=== PATIENT | female | born 1960 | race Hispanic/Latino ===

== ENCOUNTER 2016-05-24 10:07 | Outpatient (CLI) | payer MEDICARE ==
--- NOTE | 2016-05-24 11:26 | XRay Report ---
CERVICAL SPINE, 5 views: History: Cervicalgia, neck pain. Findings: No comparison. There is normal height and alignment of the cervical vertebral bodies. Mild disc space narrowing and anterior spurring is identified at C5-6 and C6-7. The remaining levels are within normal in its. The facet joints are unremarkable. The oblique images demonstrate no evidence for high-grade neural foraminal narrowing. The prevertebral soft tissues are normal thickness. IMPRESSION: Mild cervical spondylosis as described.
--- NOTE | 2016-05-24 12:14 | XRay Report ---
BILATERAL FEET, 3 VIEWS History: Bilateral foot pain. Findings: There is normal bone mineralization. Mild joint space narrowing is noted at the first metatarsophalangeal joints bilaterally. No acute osseous findings or erosive joint pathology. Mild degenerative changes are noted in the midfoot. Moderate bilateral plantar spurs are identified. The soft tissues are unremarkable. Impression: Mild bilateral osteoarthritic changes. Moderate bilateral plantar spurs.
--- NOTE | 2016-05-24 12:30 | XRay Report ---
LUMBOSACRAL SPINE, FIVE VIEWS: HISTORY: Low back pain. No comparison. There is 4 mm anterolisthesis of L4 respect to L5 which is secondary to bilateral L4 pars defects. The remaining lumbar vertebra are normal in alignment. No compression deformity, fracture or bone lesion. There is moderate disc space narrowing and facet arthropathy at L4-5 and L5-S1. There is mild facet arthropathy at the remaining levels. The oblique images are limited and poorly demonstrate the neural foramen. Neural foraminal narrowing and at the lower levels could be present. IMPRESSION: Lumbar spondylosis. Grade 1 anterolisthesis of L4 with respect to L5. No acute process identified.
== END 2016-05-24 10:08 | disposition home or self-care (01) ==
LOC: XRAY 10:07
PROVIDERS: ATTEND Urology
DX: M47.892 Other spondylosis, cervical region (principal); M47.896 Other spondylosis, lumbar region; M12.88 Other specific arthropathies, not elsewhere classified, other specified site; M79.671 Pain in right foot; M54.5 Low back pain
CPT/HCPCS: 72050; 72110

== ENCOUNTER 2016-12-10 15:23 | Inpatient (IN) | payer MEDICARE ==
[2016-12-10 16:24] LABS: Urine Drugs of Abuse Note Disclamer
[2016-12-10 16:32] LABS: Bilirubin,Urine NEG (Negative); Blood,Urine NEG (Negative); Ketones,Urine NEG (Negative); Leukocyte Esterase,Urine NEG (Negative); Nitrite,Urine NEG (Negative); Protein,Urine <15 mg/dL mg/dL (Negative); Urobilinogen,Urine < 2.0 mg/dL (<2.0); WBC,Urine < 1.0 /HPF (0.0-6.0)
[2016-12-10 16:59] LABS: Alanine Aminotransferase 13 units/L (7-56); Albumin 3.7 g/dL (3.9-5); Albumin/Globulin Ratio 0.8 %; Alkaline Phosphatase 110 units/L (35-129); Anion Gap 21 mmol/L; BUN/Creatinine Ratio 18; Blood Urea Nitrogen 9 mg/dL (7-17); Calcium 9.5 mg/dL (8.4-10.2); Carbon Dioxide 19 mmol/L (22-30); Chloride 101.1 mmol/L (98-107); Glucose 113 mg/dL (65-100); Potassium 3.8 mmol/L (3.6-5.0); Sodium 137 mmol/L (137-145); Total Protein 8.2 g/dL (6.3-8.2)
[2016-12-10 17:01] LABS: Basophils % (Auto) 0.6 % (0.0-1.8); Eosinophils % (Auto) 1.4 % (0.0-4.3); Hematocrit 35.1 % (30.3-42.9); Hemoglobin 11.7 gm/dl (10.1-14.3); Mean Corpuscular HGB Conc 33 % (30-34); Mean Corpuscular Hemoglobin 27 pg (28-32); Mean Corpuscular Volume 81 fl (79-97); Platelet Count 294 K/mm3 (140-440); Red Blood Count 4.33 M/mm3 (3.65-5.03); Red Cell Distribution Width 16.1 % (13.2-15.2)
--- NOTE | 2016-12-10 20:12 | Emergency Department Report ---
ED Altered Mental Status HPI - General Chief Complaint: Altered Mental Status Stated Complaint: AMS Time Seen by Provider: 12/10/16 20:04 Source: patient, EMS Mode of arrival: Ambulatory Limitations: Altered Mental Status - History of Present Illness Initial Comments: Patient is a 56-year-old female found on the side of the road in the rain. Patient states she is trying to look for her mama. She denies any complaints currently. No fevers chills nausea or vomiting. She is alert and oriented 1. MD Complaint: altered mental status -: unknown Severity: Unable to Determine Consistency of Symptoms: unknown Context: unknown - Related Data Home Medications Medication Instructions Recorded Confirmed Last Taken Unobtainable 12/10/16 12/10/16 Unknown Allergies Allergy/AdvReac Type Severity Reaction Status Date / Time Penicillins Allergy Anaphylaxis Unverified 12/10/16 17:09 ED Review of Systems ROS: Stated complaint: AMS Other details as noted in HPI Comment: Unobtainable due to pts medical conditions (patient denies pain fevers chills nausea vomiting.) ED Past Medical Hx - Past Medical History Previous Medical History?: Yes Hx Psychiatric Treatment: Yes (SCHIZOPHRENIA) - Surgical History Past Surgical History?: Yes Additional Surgical History: TRACH, CHEST TUBE - Social History Smoking Status: Never Smoker Substance Use Type: None - Medications Home Medications: Home Medications Medication Instructions Recorded Confirmed Last Taken Type Unobtainable 12/10/16 12/10/16 Unknown History ED Physical Exam - General Limitations: Altered Mental Status - Head Head exam: Present: atraumatic, normocephalic - Eye Eye exam: Present: normal appearance. Absent: scleral icterus, conjunctival injection - ENT ENT exam: Present: mucous membranes moist - Respiratory Respiratory exam: Present: normal lung sounds bilaterally. Absent: respiratory distress, wheezes - Cardiovascular Cardiovascular Exam: Present: regular rate, normal rhythm, systolic murmur (2 out of 6) - GI/Abdominal GI/Abdominal exam: Present: soft, normal bowel sounds. Absent: distended, tenderness, guarding - Extremities Exam Extremities exam: Present: normal inspection - Back Exam Back exam: Present: normal inspection - Neurological Exam Neurological exam: Present: alert, other (oriented 1) - Psychiatric Psychiatric exam: Present: agitated. Absent: manic, suicidal ideation ED Course Vital Signs 12/10/16 12/10/16 12/10/16 15:55 16:00 16:02 Temperature Pulse Rate Respiratory Rate Blood Pressure 130/61 130/61 Blood Pressure [Left] O2 Sat by Pulse 97 99 92 Oximetry 12/10/16 12/10/16 12/10/16 16:04 16:06 16:08 Temperature 98.2 F Pulse Rate Respiratory 18 Rate Blood Pressure 130/61 130/61 130/61 Blood Pressure [Left] O2 Sat by Pulse 88 87 92 Oximetry 12/10/16 12/10/16 12/10/16 16:10 16:12 16:14 Temperature Pulse Rate Respiratory Rate Blood Pressure 130/61 130/61 130/61 Blood Pressure [Left] O2 Sat by Pulse 93 99 92 Oximetry 12/10/16 12/10/16 12/10/16 16:16 16:18 16:20 Temperature Pulse Rate Respiratory Rate Blood Pressure 130/61 130/61 130/61 Blood Pressure [Left] O2 Sat by Pulse 91 94 95 Oximetry 12/10/16 12/10/16 12/10/16 16:22 16:24 16:26 Temperature Pulse Rate Respiratory Rate Blood Pressure 130/61 130/61 130/61 Blood Pressure [Left] O2 Sat by Pulse 94 95 93 Oximetry 12/10/16 12/10/16 12/10/16 16:28 16:30 16:32 Temperature Pulse Rate Respiratory Rate Blood Pressure 130/61 118/58 118/58 Blood Pressure [Left] O2 Sat by Pulse 95 95 94 Oximetry 12/10/16 12/10/16 12/10/16 16:34 16:36 16:38 Temperature Pulse Rate Respiratory Rate Blood Pressure 118/58 118/58 118/58 Blood Pressure [Left] O2 Sat by Pulse 92 91 91 Oximetry 12/10/16 12/10/16 12/10/16 16:40 16:42 16:44 Temperature Pulse Rate Respiratory Rate Blood Pressure 118/58 118/58 118/58 Blood Pressure [Left] O2 Sat by Pulse 93 93 93 Oximetry 12/10/16 12/10/16 12/10/16 16:46 16:48 16:50 Temperature Pulse Rate Respiratory Rate Blood Pressure 118/58 118/58 118/58 Blood Pressure [Left] O2 Sat by Pulse 91 93 92 Oximetry 12/10/16 12/10/16 12/10/16 16:52 16:54 16:56 Temperature Pulse Rate Respiratory Rate Blood Pressure 118/58 118/58 118/58 Blood Pressure [Left] O2 Sat by Pulse 90 91 93 Oximetry 12/10/16 12/10/16 12/10/16 16:58 17:00 19:20 Temperature Pulse Rate Respiratory Rate Blood Pressure 118/58 129/63 121/66 Blood Pressure [Left] O2 Sat by Pulse 92 91 95 Oximetry 12/10/16 12/10/16 12/10/16 19:30 20:00 20:30 Temperature Pulse Rate Respiratory Rate Blood Pressure 121/66 114/68 114/68 Blood Pressure [Left] O2 Sat by Pulse 92 91 97 Oximetry 12/10/16 21:00 Temperature Pulse Rate 79 Respiratory 18 Rate Blood Pressure 125/65 Blood Pressure 125/65 [Left] O2 Sat by Pulse 96 Oximetry - Lab Data Result diagrams: 12/10/16 16:20 12/10/16 16:20 Lab Results 12/10/16 12/10/16 12/10/16 Range/Units 15:35 15:35 16:04 WBC (4.5-11.0) K/mm3 RBC (3.65-5.03) M/mm3 Hgb (10.1-14.3) gm/dl Hct (30.3-42.9) % MCV (79-97) fl MCH (28-32) pg MCHC (30-34) % RDW (13.2-15.2) % Plt Count (140-440) K/mm3 Lymph % (Auto) (13.4-35.0) % [place] % (Auto) (0.0-7.3) % Eos % (Auto) (0.0-4.3) % Baso % (Auto) (0.0-1.8) % Lymph # (1.2-5.4) K/mm3 [place] # (0.0-0.8) K/mm3 Eos # (0.0-0.4) K/mm3 Baso # (0.0-0.1) K/mm3 Seg Neutrophils % (40.0-70.0) % Seg Neutrophils # (1.8-7.7) K/mm3 Sodium (137-145) mmol/L Potassium (3.6-5.0) mmol/L Chloride (98-107) mmol/L Carbon Dioxide (22-30) mmol/L Anion Gap mmol/L BUN (7-17) mg/dL Creatinine (0.7-1.2) mg/dL Estimated GFR ml/min BUN/Creatinine Ratio % Glucose (65-100) mg/dL POC Glucose 101 (70-105) Lactic Acid (0.7-2.0) mmol/L Calcium (8.4-10.2) mg/dL Magnesium (1.7-2.3) mg/dL Total Bilirubin (0.1-1.2) mg/dL AST (5-40) units/L ALT (7-56) units/L Alkaline Phosphatase (35-129) units/L Total Protein (6.3-8.2) g/dL Albumin (3.9-5) g/dL Albumin/Globulin Ratio % TSH (0.270-4.200) mlU/mL Urine Color Yellow (Yellow) Urine Turbidity Clear (Clear) Urine pH 7.0 (5.0-7.0) Ur Specific [place] 1.009 (1.003-1.030) Urine Protein <15 mg/dl (Negative) mg/dL Urine Glucose (UA) Neg (Negative) mg/dL Urine Ketones Neg (Negative) mg/dL Urine Blood Neg (Negative) Urine Nitrite Neg (Negative) Urine Bilirubin Neg (Negative) Urine Urobilinogen < 2.0 (<2.0) mg/dL Ur Leukocyte Esterase Neg (Negative) Urine WBC (Auto) < 1.0 (0.0-6.0) /HPF Urine RBC (Auto) 1.0 (0.0-6.0) /HPF Salicylates (2.8-20.0) mg/dL Urine Opiates Screen Presumptive negative Urine Methadone Screen Presumptive negative Acetaminophen (10.0-30.0) ug/mL Ur Barbiturates Screen Presumptive negative Ur Phencyclidine Scrn Presumptive negative Ur Amphetamines Screen Presumptive negative U Benzodiazepines Scrn Presumptive negative Urine Cocaine Screen Presumptive negative U Marijuana (THC) Screen Presumptive negative Drugs of Abuse Note Disclamer Plasma/Serum Alcohol (0-0.07) gm% 12/10/16 12/10/16 12/10/16 Range/Units 16:20 16:20 16:20 WBC 11.0 (4.5-11.0) K/mm3 RBC 4.33 (3.65-5.03) M/mm3 Hgb 11.7 (10.1-14.3) gm/dl Hct 35.1 (30.3-42.9) % MCV 81 (79-97) fl MCH 27 L (28-32) pg MCHC 33 (30-34) % RDW 16.1 H (13.2-15.2) % Plt Count 294 (140-440) K/mm3 Lymph % (Auto) 39.1 H (13.4-35.0) % [place] % (Auto) 7.0 (0.0-7.3) % Eos % (Auto) 1.4 (0.0-4.3) % Baso % (Auto) 0.6 (0.0-1.8) % Lymph # 4.3 (1.2-5.4) K/mm3 [place] # 0.8 (0.0-0.8) K/mm3 Eos # 0.2 (0.0-0.4) K/mm3 Baso # 0.1 (0.0-0.1) K/mm3 Seg Neutrophils % 51.9 (40.0-70.0) % Seg Neutrophils # 5.7 (1.8-7.7) K/mm3 Sodium 137 (137-145) mmol/L Potassium 3.8 (3.6-5.0) mmol/L Chloride 101.1 (98-107) mmol/L Carbon Dioxide 19 L (22-30) mmol/L Anion Gap 21 mmol/L BUN 9 (7-17) mg/dL Creatinine 0.5 L (0.7-1.2) mg/dL Estimated GFR > 60 ml/min BUN/Creatinine Ratio 18 % Glucose 113 H (65-100) mg/dL POC Glucose (70-105) Lactic Acid 1.60 (0.7-2.0) mmol/L Calcium 9.5 (8.4-10.2) mg/dL Magnesium 1.70 (1.7-2.3) mg/dL Total Bilirubin 0.30 (0.1-1.2) mg/dL AST 21 (5-40) units/L ALT 13 (7-56) units/L Alkaline Phosphatase 110 (35-129) units/L Total Protein 8.2 (6.3-8.2) g/dL Albumin 3.7 L (3.9-5) g/dL Albumin/Globulin Ratio 0.8 % TSH (0.270-4.200) mlU/mL Urine Color (Yellow) Urine Turbidity (Clear) Urine pH (5.0-7.0) Ur Specific [place] (1.003-1.030) Urine Protein (Negative) mg/dL Urine Glucose (UA) (Negative) mg/dL Urine Ketones (Negative) mg/dL Urine Blood (Negative) Urine Nitrite (Negative) Urine Bilirubin (Negative) Urine Urobilinogen (<2.0) mg/dL Ur Leukocyte Esterase (Negative) Urine WBC (Auto) (0.0-6.0) /HPF Urine RBC (Auto) (0.0-6.0) /HPF Salicylates (2.8-20.0) mg/dL Urine Opiates Screen Urine Methadone Screen Acetaminophen (10.0-30.0) ug/mL Ur Barbiturates Screen Ur Phencyclidine Scrn Ur Amphetamines Screen U Benzodiazepines Scrn Urine Cocaine Screen U Marijuana (THC) Screen Drugs of Abuse Note Plasma/Serum Alcohol (0-0.07) gm% 12/10/16 12/10/16 12/10/16 Range/Units 16:20 16:20 16:20 WBC (4.5-11.0) K/mm3 RBC (3.65-5.03) M/mm3 Hgb (10.1-14.3) gm/dl Hct (30.3-42.9) % MCV (79-97) fl MCH (28-32) pg MCHC (30-34) % RDW (13.2-15.2) % Plt Count (140-440) K/mm3 Lymph % (Auto) (13.4-35.0) % [place] % (Auto) (0.0-7.3) % Eos % (Auto) (0.0-4.3) % Baso % (Auto) (0.0-1.8) % Lymph # (1.2-5.4) K/mm3 [place] # (0.0-0.8) K/mm3 Eos # (0.0-0.4) K/mm3 Baso # (0.0-0.1) K/mm3 Seg Neutrophils % (40.0-70.0) % Seg Neutrophils # (1.8-7.7) K/mm3 Sodium (137-145) mmol/L Potassium (3.6-5.0) mmol/L Chloride (98-107) mmol/L Carbon Dioxide (22-30) mmol/L Anion Gap mmol/L BUN (7-17) mg/dL Creatinine (0.7-1.2) mg/dL Estimated GFR ml/min BUN/Creatinine Ratio % Glucose (65-100) mg/dL POC Glucose (70-105) Lactic Acid (0.7-2.0) mmol/L Calcium (8.4-10.2) mg/dL Magnesium (1.7-2.3) mg/dL Total Bilirubin (0.1-1.2) mg/dL AST (5-40) units/L ALT (7-56) units/L Alkaline Phosphatase (35-129) units/L Total Protein (6.3-8.2) g/dL Albumin (3.9-5) g/dL Albumin/Globulin Ratio % TSH 4.120 (0.270-4.200) mlU/mL Urine Color (Yellow) Urine Turbidity (Clear) Urine pH (5.0-7.0) Ur Specific [place] (1.003-1.030) Urine Protein (Negative) mg/dL Urine Glucose (UA) (Negative) mg/dL Urine Ketones (Negative) mg/dL Urine Blood (Negative) Urine Nitrite (Negative) Urine Bilirubin (Negative) Urine Urobilinogen (<2.0) mg/dL Ur Leukocyte Esterase (Negative) Urine WBC (Auto) (0.0-6.0) /HPF Urine RBC (Auto) (0.0-6.0) /HPF Salicylates < 0.3 L (2.8-20.0) mg/dL Urine Opiates Screen Urine Methadone Screen Acetaminophen < 15.0 (10.0-30.0) ug/mL Ur Barbiturates Screen Ur Phencyclidine Scrn Ur Amphetamines Screen U Benzodiazepines Scrn Urine Cocaine Screen U Marijuana (THC) Screen Drugs of Abuse Note Plasma/Serum Alcohol (0-0.07) gm% 12/10/16 12/10/16 Range/Units 16:20 18:53 WBC (4.5-11.0) K/mm3 RBC (3.65-5.03) M/mm3 Hgb (10.1-14.3) gm/dl Hct (30.3-42.9) % MCV (79-97) fl MCH (28-32) pg MCHC (30-34) % RDW (13.2-15.2) % Plt Count (140-440) K/mm3 Lymph % (Auto) (13.4-35.0) % [place] % (Auto) (0.0-7.3) % Eos % (Auto) (0.0-4.3) % Baso % (Auto) (0.0-1.8) % Lymph # (1.2-5.4) K/mm3 [place] # (0.0-0.8) K/mm3 Eos # (0.0-0.4) K/mm3 Baso # (0.0-0.1) K/mm3 Seg Neutrophils % (40.0-70.0) % Seg Neutrophils # (1.8-7.7) K/mm3 Sodium (137-145) mmol/L Potassium (3.6-5.0) mmol/L Chloride (98-107) mmol/L Carbon Dioxide (22-30) mmol/L Anion Gap mmol/L BUN (7-17) mg/dL Creatinine (0.7-1.2) mg/dL Estimated GFR ml/min BUN/Creatinine Ratio % Glucose (65-100) mg/dL POC Glucose (70-105) Lactic Acid 1.40 (0.7-2.0) mmol/L Calcium (8.4-10.2) mg/dL Magnesium (1.7-2.3) mg/dL Total Bilirubin (0.1-1.2) mg/dL AST (5-40) units/L ALT (7-56) units/L Alkaline Phosphatase (35-129) units/L Total Protein (6.3-8.2) g/dL Albumin (3.9-5) g/dL Albumin/Globulin Ratio % TSH (0.270-4.200) mlU/mL Urine Color (Yellow) Urine Turbidity (Clear) Urine pH (5.0-7.0) Ur Specific [place] (1.003-1.030) Urine Protein (Negative) mg/dL Urine Glucose (UA) (Negative) mg/dL Urine Ketones (Negative) mg/dL Urine Blood (Negative) Urine Nitrite (Negative) Urine Bilirubin (Negative) Urine Urobilinogen (<2.0) mg/dL Ur Leukocyte Esterase (Negative) Urine WBC (Auto) (0.0-6.0) /HPF Urine RBC (Auto) (0.0-6.0) /HPF Salicylates (2.8-20.0) mg/dL Urine Opiates Screen Urine Methadone Screen Acetaminophen (10.0-30.0) ug/mL Ur Barbiturates Screen Ur Phencyclidine Scrn Ur Amphetamines Screen U Benzodiazepines Scrn Urine Cocaine Screen U Marijuana (THC) Screen Drugs of Abuse Note Plasma/Serum Alcohol < 0.01 (0-0.07) gm% - EKG Data -: EKG Interpreted by Me 12/10/16 21:18 Sinus 74 normal axis normal intervals incomplete right bundle branch block no ST -T wave changes - Medical Decision Making 56-year-old female here found in the elements. Unclear what her baseline is at this point. Attempted to reach solar energy technician. Labs are unremarkable. Plan head CT and chest x-ray. Phy Therapist [place] patient is at her baseline. She states that she is very needy and off and wants to be solar energy technician. States that when she left for rastafarian the patient got upset with her and decided to wander off. Head CT shows a hyperdense area in the left basal ganglia. Patient has no focal neurological findings. It is unclear if this is old. I do not suspect she has an intracranial hemorrhage. Given this finding I will admit her to the hospital for repeat CAT scan in 12 hours. Portions of this chart were dictated with dictation software. There may be dictation errors contained within this note. Critical care attestation.: If time is entered above; I have spent that time in minutes in the direct care of this critically ill patient, excluding procedure time. ED Disposition Clinical Impression: Altered mental status Disposition: [id number] OP ADMIT IP TO THIS HOSP Is pt being admited?: Yes Condition: Stable Referrals: PRIMARY CARE, [Primary Care Provider] - 3-5 Days
--- NOTE | 2016-12-10 20:45 | XRay Report ---
FINAL REPORT EXAM: XR CHEST 1V AP HISTORY: altered mental status TECHNIQUE: Single-view chest PRIORS: None. FINDINGS: No focal consolidations are seen in the lungs.The cardiomediastinal silhouette is within normal limits for size and contour. No acute osseous abnormality is identified. Degenerative changes are noted in the spine and right shoulder. IMPRESSION: 1. No definite radiographic evidence of acute cardiopulmonary disease.
--- NOTE | 2016-12-10 21:12 | Cat Scan Report ---
FINAL REPORT EXAM: CT HEAD/BRAIN WO CON HISTORY: altered mental status TECHNIQUE: Noncontrast serial axial images from skull base to vertex. PRIORS: None. FINDINGS: There is no mass effect or midline shift. There are no abnormal intra or extra-axial fluid collections. Cortical sulci and lateral ventricles are within normal limits for size and configuration. Basilar cisterns are patent. There is a 5 millimeter hyperdense focus in the left basal ganglia. Visualized paranasal sinuses and mastoid air cells are well aerated. No acute osseous abnormality is identified. IMPRESSION: 1. There is a 5 millimeter hyperdense focus in the left basal ganglia. This may represent calcification, but possibility of focal hemorrhage is not excluded. There are currently no studies available for comparison. A short-term interval follow-up examination can be performed to assure stability. UNF
[2016-12-10] MEDS ORDERED: TYLENOL PO PRN (23:58)
[2016-12-11] MEDS ORDERED: ZOFRAN IV PRN (00:02)
--- NOTE | 2016-12-11 10:30 | Cat Scan Report ---
CT HEAD WITHOUT CONTRAST: HISTORY: Altered mental status. Serial contiguous axial images were obtained through the cranium. Intravenous contrast material was not administered. The ventricles are normal in size and appearance. There is no mass effect or midline shift. No areas of abnormally increased or decreased attenuation are seen. No mass lesion is seen. Basal ganglia calcifications are noted and unchanged. The mastoid air cells and visualized portions of the sinuses are normal. IMPRESSION: Cranial CT scan within normal limits.
--- NOTE | 2016-12-11 10:42 | History and Physical Report ---
CHIEF COMPLAINT: Change in mental status. HISTORY OF PRESENT ILLNESS: The patient is a 56-year-old female, found on the roadside wandering around in the rain saying that she was looking for her mother. There was no history of fever or chills. No history of chest pain, shortness of breath, nausea or vomiting. The patient was recently placed in psych facility because of history of schizophrenia. PAST MEDICAL HISTORY: Pertinent for schizophrenia. PAST SURGICAL HISTORY: Pertinent for tracheostomy, chest tube placement. FAMILY HISTORY: Noncontributory. SOCIAL HISTORY: The patient was recently sent to a psych facility. The patient does not smoke and does not use illicit drugs. MEDICATIONS: The patient's home medications are not known. ALLERGIES: The patient is allergic to PENICILLIN. REVIEW OF SYSTEMS: CONSTITUTIONAL: There is no fever, no chills, no diaphoresis. HEENT: There is no headache or sore throat. CARDIOVASCULAR SYSTEM: There is no chest pain or orthopnea. RESPIRATORY SYSTEM: There is no shortness of breath or cough. GASTROINTESTINAL SYSTEM: There is no nausea, no vomiting, no abdominal pain, diarrhea or constipation. NEUROLOGICAL SYSTEM: There is confusion or altered mental status. There is no dizziness. MUSCULOSKELETAL SYSTEM: There is no joint pain or swelling. DERMATOLOGICAL SYSTEM: There is no skin rash or itching. GENITOURINARY SYSTEM: There is no dysuria or hematuria. Rest of system review is normal. PHYSICAL EXAMINATION: GENERAL: At the time of exam, the patient was found to be alert and oriented to person and not in acute distress. VITAL SIGNS: Shows normal temperature of 97.9 degrees Fahrenheit, pulse of 79, respirations 18, blood pressure running between 98/56 to 127/70, O2 sat 90-95% on room air. HEENT: Exam showed pupils to be equal, round, and reactive to light and accommodation. Extraocular muscles are intact. NECK: Supple with no JVD or carotid bruit. CARDIOVASCULAR SYSTEM: Show first and second heart sounds with no gallops or murmurs. RESPIRATORY SYSTEM: Showed good air entry on both sides of the lung with no abnormal breath sounds. GASTROINTESTINAL SYSTEM: Show abdomen to be full, soft, and nontender with no organomegaly or rigidity. NEUROLOGICAL SYSTEM: Showed no focal deficits. MUSCULOSKELETAL SYSTEM: Show no joint swelling or tenderness. DERMATOLOGICAL SYSTEM: Show no skin rash. GENITOURINARY SYSTEM: Showing no costovertebral angle tenderness. PERTINENT LAB AND IMAGING STUDIES: The patient had a CT of the head without contrast done that shows a 5 mm hyperdense focus in the left basal ganglia. Radiologist said that this may represent calcification, but possibility of focal hemorrhage is not excluded. There are currently no studies available for comparison. Radiologist suggested a short-term interval followup examination to assure stability. The patient also had chest x-ray done that shows no definite radiographic evidence of acute cardiopulmonary disease. The patient's lab results, CBC was unremarkable. The patient's chemistry showed a slight decrease in his CO2 of 19, otherwise unremarkable. Urinalysis came back unremarkable. Toxicology screen was unremarkable. DIAGNOSIS: Altered mental status. PLAN: The patient will be admitted to medical floor and will have a repeat CT of the head without contrast, 12 hours [address] the last CT according to the request from the radiologist. The patient will have Neurology consult with Dr. Kimble because of abnormal CT findings and change in mental status. The patient will be on Tylenol 650 mg by mouth every 4 hours for fever and headache and will be on IV Zofran 4 mg every 8 hours for nausea and vomiting. The patient's deep venous thrombosis prophylaxis will be through sequential compressive device and the patient will be on oxygen by nasal cannula at 2 liter per minute. The patient's home medications will be reconciled and started accordingly when they are known. JOB# [id number] [facility]/ART GILLETTE
[2016-12-11] MEDS ORDERED: Fluarix Quad 2017-2018(36 MOS+) IM ONE (12:00)
[2016-12-11] MEDS ORDERED: SODIUM CHLORIDE FLUSH SYRINGE 10 ML IV PRN (13:00)
[2016-12-11] MEDS ORDERED: NORMODYNE IV PRN (13:16)
--- NOTE | 2016-12-11 13:25 | Consultation ---
History of Present Illness - Reason for Consult Consult date: 12/11/16 ams - History of Present Illness there is focal area of increased ensity in the left basal ganglia this could be bleed plan MRI of the brain Medications and Allergies Allergies Allergy/AdvReac Type Severity Reaction Status Date / Time Penicillins Allergy Anaphylaxis Unverified 12/10/16 17:09 Home Medications Medication Instructions Recorded Confirmed Last Taken Type Unobtainable 12/10/16 12/10/16 Unknown History Active Meds: Active Medications Acetaminophen (Tylenol) 650 mg PO Q4H PRN PRN Reason: For Pain/Fever/Headache Enoxaparin Sodium (Lovenox) 40 mg SUB-Q QDAY@2200 JOSEI Ondansetron HCl (Zofran) 4 mg IV Q8H PRN PRN Reason: Nausea And Vomiting Tramadol HCl (Ultram) 50 mg PO Q4H PRN PRN Reason: Pain, Moderate (4-6) Exam - Constitutional Vitals: Temp Pulse Resp BP Pulse Ox 97.7 F 67 20 115/60 97 12/11/16 11:23 12/11/16 11:44 12/11/16 11:23 12/11/16 11:23 12/11/16 11:24 Results - Labs CBC & Chem 7: 12/10/16 16:20 12/10/16 16:20
--- NOTE | 2016-12-11 13:37 | Progress Note ---
Assessment and Plan Assessment and plan: 56-year-old woman with past medical history of schizophrenia, multiple back surgeries, she lives in assisted living, [facility] after was found wandering on the [place] in the rain and confused. Apparently patient told people that she was looking for her mother Metabolic encephalopathy CT head showed a 5 mm hyperdense focus in the left basal ganglia -put on stroke protocol -obtain MR brain -Neurology consult, try to minimize any medications that could cause delireum -Allow permissive hypertension, check lipid panel and A1c, carotid Dopplers and echocardiogram Back pain -continue pain meds as above DVT ppx scds History Interval history: she does not quite remember why she is here. she is hungry, no other complaints Hospitalist Physical - Physical exam Narrative exam: General.: Appears well, no distress, nontoxic HEENT: Moist mucous membranes, extraocular muscles intact, no lymphadenopathy Neck: supple Cardiac: S1-S2 heard Lungs: clear to auscultation bilaterally Abdomen: soft , nontender, nondistended, bowel sounds positive Extremities: no edema clubbing or cyanosis Skin: no rash or lesions Neurologic: no gross focal deficits Psych: appropriate behavior, appropriate mood, corporative, judgment intact - Constitutional Vitals: Temp Pulse Resp BP Pulse Ox 97.7 F 67 20 115/60 97 12/11/16 11:23 12/11/16 11:44 12/11/16 11:23 12/11/16 11:23 12/11/16 11:24 Results - Labs CBC & Chem 7: 12/10/16 16:20 12/10/16 16:20 Labs: Laboratory Last Values WBC 11.0 K/mm3 (4.5-11.0) 12/10/16 16:20 RBC 4.33 M/mm3 (3.65-5.03) 12/10/16 16:20 Hgb 11.7 gm/dl (10.1-14.3) 12/10/16 16:20 Hct 35.1 % (30.3-42.9) 12/10/16 16:20 MCV 81 fl (79-97) 12/10/16 16:20 MCH 27 pg (28-32) L 12/10/16 16:20 MCHC 33 % (30-34) 12/10/16 16:20 RDW 16.1 % (13.2-15.2) H 12/10/16 16:20 Plt Count 294 K/mm3 (140-440) 12/10/16 16:20 Lymph % (Auto) 39.1 % (13.4-35.0) H 12/10/16 16:20 [place] % (Auto) 7.0 % (0.0-7.3) 12/10/16 16:20 Eos % (Auto) 1.4 % (0.0-4.3) 12/10/16 16:20 Baso % (Auto) 0.6 % (0.0-1.8) 12/10/16 16:20 Lymph # 4.3 K/mm3 (1.2-5.4) 12/10/16 16:20 [place] # 0.8 K/mm3 (0.0-0.8) 12/10/16 16:20 Eos # 0.2 K/mm3 (0.0-0.4) 12/10/16 16:20 Baso # 0.1 K/mm3 (0.0-0.1) 12/10/16 16:20 Seg Neutrophils % 51.9 % (40.0-70.0) 12/10/16 16:20 Seg Neutrophils # 5.7 K/mm3 (1.8-7.7) 12/10/16 16:20 Sodium 137 mmol/L (137-145) 12/10/16 16:20 Potassium 3.8 mmol/L (3.6-5.0) 12/10/16 16:20 Chloride 101.1 mmol/L (98-107) 12/10/16 16:20 Carbon Dioxide 19 mmol/L (22-30) L 12/10/16 16:20 Anion Gap 21 mmol/L 12/10/16 16:20 BUN 9 mg/dL (7-17) 12/10/16 16:20 Creatinine 0.5 mg/dL (0.7-1.2) L 12/10/16 16:20 Estimated GFR > 60 ml/min 12/10/16 16:20 BUN/Creatinine Ratio 18 % 12/10/16 16:20 Glucose 113 mg/dL (65-100) H 12/10/16 16:20 POC Glucose 101 (70-105) 12/10/16 16:04 Lactic Acid 1.40 mmol/L (0.7-2.0) 12/10/16 18:53 Calcium 9.5 mg/dL (8.4-10.2) 12/10/16 16:20 Magnesium 1.70 mg/dL (1.7-2.3) 12/10/16 16:20 Total Bilirubin 0.30 mg/dL (0.1-1.2) 12/10/16 16:20 AST 21 units/L (5-40) 12/10/16 16:20 ALT 13 units/L (7-56) 12/10/16 16:20 Alkaline Phosphatase 110 units/L (35-129) 12/10/16 16:20 Total Protein 8.2 g/dL (6.3-8.2) 12/10/16 16:20 Albumin 3.7 g/dL (3.9-5) L 12/10/16 16:20 Albumin/Globulin Ratio 0.8 % 12/10/16 16:20 TSH 4.120 mlU/mL (0.270-4.200) 12/10/16 16:20 Urine Color Yellow (Yellow) 12/10/16 15:35 Urine Turbidity Clear (Clear) 12/10/16 15:35 Urine pH 7.0 (5.0-7.0) 12/10/16 15:35 Ur Specific [place] 1.009 (1.003-1.030) 12/10/16 15:35 Urine Protein <15 mg/dl mg/dL (Negative) 12/10/16 15:35 Urine Glucose (UA) Neg mg/dL (Negative) 12/10/16 15:35 Urine Ketones Neg mg/dL (Negative) 12/10/16 15:35 Urine Blood Neg (Negative) 12/10/16 15:35 Urine Nitrite Neg (Negative) 12/10/16 15:35 Urine Bilirubin Neg (Negative) 12/10/16 15:35 Urine Urobilinogen < 2.0 mg/dL (<2.0) 12/10/16 15:35 Ur Leukocyte Esterase Neg (Negative) 12/10/16 15:35 Urine WBC (Auto) < 1.0 /HPF (0.0-6.0) 12/10/16 15:35 Urine RBC (Auto) 1.0 /HPF (0.0-6.0) 12/10/16 15:35 Salicylates < 0.3 mg/dL (2.8-20.0) L 12/10/16 16:20 Urine Opiates Screen Presumptive negative 12/10/16 15:35 Urine Methadone Screen Presumptive negative 12/10/16 15:35 Acetaminophen < 15.0 ug/mL (10.0-30.0) 12/10/16 16:20 Ur Barbiturates Screen Presumptive negative 12/10/16 15:35 Ur Phencyclidine Scrn Presumptive negative 12/10/16 15:35 Ur Amphetamines Screen Presumptive negative 12/10/16 15:35 U Benzodiazepines Scrn Presumptive negative 12/10/16 15:35 Urine Cocaine Screen Presumptive negative 12/10/16 15:35 U Marijuana (THC) Screen Presumptive negative 12/10/16 15:35 Drugs of Abuse Note Disclamer 12/10/16 15:35 Plasma/Serum Alcohol < 0.01 gm% (0-0.07) 12/10/16 16:20 - Imaging and Cardiology CT Scan - head: image reviewed (5 mm hyperdense focus in the left basal ganglia)
[2016-12-11] MEDS: ASPIRIN PO SCH (17:36)
[2016-12-11] MEDS: ULTRAM PO PRN (17:36)
[2016-12-11] MEDS ORDERED: LOVENOX SUB-Q SCH (22:00)
[2016-12-11] MEDS: ZOCOR PO SCH (22:52)
[2016-12-12] MEDS: ULTRAM PO PRN ×2 (05:30→21:51)
[2016-12-12] MEDS: ASPIRIN PO SCH (11:01)
--- NOTE | 2016-12-12 13:20 | Progress Note ---
Assessment and Plan Assessment and plan: 56-year-old woman with past medical history of schizophrenia, multiple back surgeries, she lives in assisted living, she had gone to [employer] after was found wandering on the [place] in the rain and confused. Apparently patient told people that she was looking for her mother Metabolic encephalopathy CT head showed a 5 mm hyperdense focus in the left basal ganglia -put on stroke protocol -obtain MR brain -Neurology consult, try to minimize any medications that could cause delireum -Allow permissive hypertension, check lipid panel and A1c, carotid Dopplers and echocardiogram Back pain -continue pain meds as above Dementia -continue supportive care, lives in nursing home DVT ppx scds History Interval history: she does not quite remember why she is here. she is hungry, no other complaints Hospitalist Physical - Physical exam Narrative exam: General.: Appears well, no distress, nontoxic HEENT: Moist mucous membranes, extraocular muscles intact, no lymphadenopathy Neck: supple Cardiac: S1-S2 heard Lungs: clear to auscultation bilaterally Abdomen: soft , nontender, nondistended, bowel sounds positive Extremities: no edema clubbing or cyanosis Skin: no rash or lesions Neurologic: no gross focal deficits, pleasantly demented, oriented to self only Psych: in-appropriately childlike behavior - Constitutional Vitals: Temp Pulse Resp BP Pulse Ox 98.6 F 65 18 124/73 93 12/12/16 12:00 12/12/16 12:00 12/12/16 12:00 12/12/16 12:00 12/12/16 12:00 Results - Labs CBC & Chem 7: 12/10/16 16:20 12/10/16 16:20 Labs: Laboratory Last Values WBC 11.0 K/mm3 (4.5-11.0) 12/10/16 16:20 RBC 4.33 M/mm3 (3.65-5.03) 12/10/16 16:20 Hgb 11.7 gm/dl (10.1-14.3) 12/10/16 16:20 Hct 35.1 % (30.3-42.9) 12/10/16 16:20 MCV 81 fl (79-97) 12/10/16 16:20 MCH 27 pg (28-32) L 12/10/16 16:20 MCHC 33 % (30-34) 12/10/16 16:20 RDW 16.1 % (13.2-15.2) H 12/10/16 16:20 Plt Count 294 K/mm3 (140-440) 12/10/16 16:20 Lymph % (Auto) 39.1 % (13.4-35.0) H 12/10/16 16:20 [place] % (Auto) 7.0 % (0.0-7.3) 12/10/16 16:20 Eos % (Auto) 1.4 % (0.0-4.3) 12/10/16 16:20 Baso % (Auto) 0.6 % (0.0-1.8) 12/10/16 16:20 Lymph # 4.3 K/mm3 (1.2-5.4) 12/10/16 16:20 [place] # 0.8 K/mm3 (0.0-0.8) 12/10/16 16:20 Eos # 0.2 K/mm3 (0.0-0.4) 12/10/16 16:20 Baso # 0.1 K/mm3 (0.0-0.1) 12/10/16 16:20 Seg Neutrophils % 51.9 % (40.0-70.0) 12/10/16 16:20 Seg Neutrophils # 5.7 K/mm3 (1.8-7.7) 12/10/16 16:20 Sodium 137 mmol/L (137-145) 12/10/16 16:20 Potassium 3.8 mmol/L (3.6-5.0) 12/10/16 16:20 Chloride 101.1 mmol/L (98-107) 12/10/16 16:20 Carbon Dioxide 19 mmol/L (22-30) L 12/10/16 16:20 Anion Gap 21 mmol/L 12/10/16 16:20 BUN 9 mg/dL (7-17) 12/10/16 16:20 Creatinine 0.5 mg/dL (0.7-1.2) L 12/10/16 16:20 Estimated GFR > 60 ml/min 12/10/16 16:20 BUN/Creatinine Ratio 18 % 12/10/16 16:20 Glucose 113 mg/dL (65-100) H 12/10/16 16:20 POC Glucose 93 (70-105) 12/11/16 21:14 Hemoglobin A1c 4.9 % (4-6) 12/12/16 04:45 Lactic Acid 1.40 mmol/L (0.7-2.0) 12/10/16 18:53 Calcium 9.5 mg/dL (8.4-10.2) 12/10/16 16:20 Magnesium 1.70 mg/dL (1.7-2.3) 12/10/16 16:20 Total Bilirubin 0.30 mg/dL (0.1-1.2) 12/10/16 16:20 AST 21 units/L (5-40) 12/10/16 16:20 ALT 13 units/L (7-56) 12/10/16 16:20 Alkaline Phosphatase 110 units/L (35-129) 12/10/16 16:20 Total Protein 8.2 g/dL (6.3-8.2) 12/10/16 16:20 Albumin 3.7 g/dL (3.9-5) L 12/10/16 16:20 Albumin/Globulin Ratio 0.8 % 12/10/16 16:20 Triglycerides 187 mg/dL (2-149) H 12/12/16 04:45 Cholesterol 167 mg/dL (50-199) 12/12/16 04:45 LDL Cholesterol Direct 103 mg/dL (50-130) 12/12/16 04:45 HDL Cholesterol 27 mg/dL (40-59) L 12/12/16 04:45 Cholesterol/HDL Ratio 6.18 % 12/12/16 04:45 TSH 4.120 mlU/mL (0.270-4.200) 12/10/16 16:20 Urine Color Yellow (Yellow) 12/10/16 15:35 Urine Turbidity Clear (Clear) 12/10/16 15:35 Urine pH 7.0 (5.0-7.0) 12/10/16 15:35 Ur Specific [place] 1.009 (1.003-1.030) 12/10/16 15:35 Urine Protein <15 mg/dl mg/dL (Negative) 12/10/16 15:35 Urine Glucose (UA) Neg mg/dL (Negative) 12/10/16 15:35 Urine Ketones Neg mg/dL (Negative) 12/10/16 15:35 Urine Blood Neg (Negative) 12/10/16 15:35 Urine Nitrite Neg (Negative) 12/10/16 15:35 Urine Bilirubin Neg (Negative) 12/10/16 15:35 Urine Urobilinogen < 2.0 mg/dL (<2.0) 12/10/16 15:35 Ur Leukocyte Esterase Neg (Negative) 12/10/16 15:35 Urine WBC (Auto) < 1.0 /HPF (0.0-6.0) 12/10/16 15:35 Urine RBC (Auto) 1.0 /HPF (0.0-6.0) 12/10/16 15:35 Salicylates < 0.3 mg/dL (2.8-20.0) L 12/10/16 16:20 Urine Opiates Screen Presumptive negative 12/10/16 15:35 Urine Methadone Screen Presumptive negative 12/10/16 15:35 Acetaminophen < 15.0 ug/mL (10.0-30.0) 12/10/16 16:20 Ur Barbiturates Screen Presumptive negative 12/10/16 15:35 Ur Phencyclidine Scrn Presumptive negative 12/10/16 15:35 Ur Amphetamines Screen Presumptive negative 12/10/16 15:35 U Benzodiazepines Scrn Presumptive negative 12/10/16 15:35 Urine Cocaine Screen Presumptive negative 12/10/16 15:35 U Marijuana (THC) Screen Presumptive negative 12/10/16 15:35 Drugs of Abuse Note Disclamer 12/10/16 15:35 Plasma/Serum Alcohol < 0.01 gm% (0-0.07) 12/10/16 16:20
[2016-12-12] MEDS ORDERED: ATIVAN ONE (14:20)
--- NOTE | 2016-12-12 17:01 | Magnetic Resonance Report ---
MRA HEAD WITHOUT CONTRAST INDICATION: Stroke. COMPARISON: None similar. FINDINGS: MRA of the head performed without intravenous contrast and demonstrates no evidence of flow-limiting stenosis, occlusion or vascular malformation. Mild vertebrobasilar tortuosity. Please note that detection of aneurysms less than 5 mm is limited on this exam. CONCLUSION: Normal study of the [place] of [place]. Thank you for the opportunity to participate in this patient's care.
--- NOTE | 2016-12-12 17:02 | Magnetic Resonance Report ---
MRI BRAIN WITHOUT CONTRAST INDICATION: Seizure. COMPARISON: Yesterday's head CT. FINDINGS: Noncontrast multiplanar and multisequence MRI of the brain demonstrates normal ventricles and sulci without acute infarct, hemorrhage, mass effect or midline shift. Mild, benign bilateral basal ganglia calcifications. No abnormal extra-axial masses or fluid collections. Normal major intracranial vascular flow voids. Mild cerebellar atrophy with increased surrounding CSF inferiorly. Symmetric seventh and eighth nerve complexes. Symmetric, grossly unremarkable eye globes. Slight nasal septal deviation. Approximately 1.5 cm left maxillary sinus mucous retention cyst inferiorly. Clear remainder imaged paranasal sinuses. Mild bilateral mastoiditis. Partially empty sella. Normal remainder midline structures without evidence of Chiari malformation. CONCLUSION: No acute intracranial MRI abnormality with mild cerebellar atrophy and mild mastoiditis/sinus disease, as described. Thank you for the opportunity to participate in this patient's care.
[2016-12-12] MEDS: ZOCOR PO SCH (21:51)
[2016-12-13] MEDS: ULTRAM PO PRN (05:44)
[2016-12-13 05:56] VITALS: BP 127/76
--- NOTE | 2016-12-13 10:32 | Discharge Summary ---
Providers - Providers Date of Admission: 12/10/16 23:54 Attending physician: ASHLEY MADERA MD 12/10/16 23:59 Consult to Physician [CONS] Routine Consulting Provider: MADELEINE GRIMES Reason For Exam: ALTERED MENTAL STATUS WITH ABNORMAL HEAD CT Place consult to:: MADELEINE GRIMES Notified:: OFFICE Was contact made?: Yes Time called:: 09:26 12/11/16 12:48 Speech Therapy Evaluation and Treat [CONS] Routine Reason For Exam: dysphagia 12/11/16 13:00 Occupational Therapy Evaluate and Treat [CONS] Routine Comment: Reason For Exam: Neuro deficits Physical Therapy Evaluation and Treat [CONS] Routine Comment: Reason For Exam: Neuro deficits Primary care physician: [facility] Hospitalization Condition: Stable Hospital course: 56-year-old woman with past medical history of schizophrenia, multiple back surgeries, she lives in assisted living, she had gone to [employer] after was found wandering on the [place] in the rain and confused. Apparently patient told people that she was looking for her mother. As it turned out the present she refers to as her mother is the reservations manager of her [employer]. In the hospital she was found to not have any focal deficits, she will not have a CT of her head that showed a possible 5 mm hyperdense focus in the left basal ganglia. She then went on to have an MRI of her brain did not show any abnormalities. Therefore stroke was essentially ruled out. The rest of her blood tests and vitals were all normal. Therefore based on these findings the patient's most likely had delirium due to her dementia and was wandering. Discharge diagnoses Metabolic encephalopathy Delirium Dementia Chronic back pain N/B CVA was ruled out Disposition: [id number]/TX-70 ANOTHER TYPE HLTHCARE Time spent for discharge: 33 minutes Core Measure Documentation - Palliative Care Palliative Care/ Comfort Measures: Not Applicable - Core Measures Any of the following diagnoses?: none Exam - Physical Exam Narrative exam: General.: Appears well, no distress, nontoxic HEENT: Moist mucous membranes, extraocular muscles intact, no lymphadenopathy Neck: supple Cardiac: S1-S2 heard Lungs: clear to auscultation bilaterally Abdomen: soft , nontender, nondistended, bowel sounds positive Extremities: no edema clubbing or cyanosis Skin: no rash or lesions Neurologic: no gross focal deficits, pleasantly demented, oriented to self only Psych: in-appropriately childlike behavior - Constitutional Vitals: Temp Pulse Resp BP Pulse Ox 98.4 F 74 18 127/76 93 12/13/16 03:49 12/13/16 03:49 12/13/16 03:49 12/13/16 03:49 12/13/16 03:49 Plan Follow up with: SHADIA LLANES MD [Primary Care Provider] - 3-5 Days MADELEINE GRIMES MD [Staff Physician] - 7 Days
[2016-12-13] MEDS: ASPIRIN PO SCH (10:58)
== END 2016-12-13 17:54 | disposition short-term general hospital (02) | DRG 884 ==
LOC: ED 15:23 → 4A 23:54
PROVIDERS: ADMIT Internal Medicine; ATTEND Internal Medicine
PROC: 3E0234Z Introduction of Serum, Toxoid and Vaccine into Muscle, Percutaneous Approach (ICD-10-PCS; principal; 2016-12-11)
DX: F03.90 Unspecified dementia, unspecified severity, without behavioral disturbance, psychotic disturbance, mood disturbance, and anxiety (principal); G93.41 Metabolic encephalopathy; F05 Delirium due to known physiological condition; F20.9 Schizophrenia, unspecified; M54.9 Dorsalgia, unspecified; Z23 Encounter for immunization; Z88.0 Allergy status to penicillin; Z93.0 Tracheostomy status
CPT/HCPCS: 36415; 70450; 70544; 70551; 71010; 80053; 80061; 80307; 80320; 81001; 82140; 82962; 83036; 83735; 84443; 85025; 90686; 93005; 93010; 93306; 93880; G0480; G8996-GN; G8997-GN; G8998-GN; J2060

== ENCOUNTER 2017-05-01 12:50 | Emergency (ER) | payer MEDICARE ==
[2017-05-01 15:30] LABS: BUN/Creatinine Ratio 24; Blood Urea Nitrogen 17 mg/dL (7-17); Calcium 8.8 mg/dL (8.4-10.2); Hemolysis Index 5
--- NOTE | 2017-05-01 15:32 | Emergency Department Report ---
Minor Respiratory - HPI Chief Complaint: Upper Respiratory Infection Stated Complaint: SORE THROAT Time Seen by Provider: 05/01/17 14:54 Duration: 3 Days Pain Location: Throat Severity: moderate Minor Respiratory: Yes Rhinorrhea, Yes Sore Throat, Yes Able to Tolerate Fluids , Yes Cough, Yes Sick Contacts (roommate), No Ear Pain, No Hemoptysis, No Chest Pain, No Shortness of Breath, No Fever Other History: This is a 57 y.o. female presents with cough, sore throat, bodyaches, and fatigue for 3 days. She reports coughing up yellow-green mucus. She is currently not taking anything for symptoms because she is not sure what to take. History of collapsed lungs last year. She is smoking 4 cigarettes a day , normally smoke 1/2 pack per day. Denies chest pain, SOB, fever, and headache. ED Review of Systems ROS: Stated complaint: SORE THROAT Other details as noted in HPI Constitutional: denies: chills, fever ENT: throat pain, congestion. denies: ear pain, dental pain, hearing loss, epistaxis Respiratory: no symptoms reported, cough. denies: orthopnea, shortness of breath, SOB with exertion, stridor, wheezing Cardiovascular: denies: chest pain, palpitations Gastrointestinal: denies: abdominal pain, nausea, vomiting, diarrhea Skin: denies: rash, lesions, change in color Neurological: denies: headache, weakness, paresthesias ED Past Medical Hx - Past Medical History Hx Congestive Heart Failure: No Hx Diabetes: No Hx Psychiatric Treatment: Yes (SCHIZOPHRENIA) Hx Asthma: Yes Hx COPD: Yes Additional medical history: TRACH 2017 - Surgical History Additional Surgical History: TRACH, CHEST TUBE - Social History Smoking Status: Current Every Day Smoker Substance Use Type: None - Medications Home Medications: Home Medications Medication Instructions Recorded Confirmed Last Taken Type Levothyroxine [Synthroid] 75 mcg PO QAM #30 tablet 12/29/16 Unknown Rx Benzonatate 200 mg PO TID PRN #30 capsule 05/01/17 Unknown Rx Prednisone [predniSONE 10 mg 10 mg PO .TAPER #1 tab.ds.pk 05/01/17 Unknown Rx (6-Day Pack, 21 Tabs)] Minor Respiratory Exam - Exam General: Vital signs noted. No distress. Alert and acting appropriately. HEENT: Yes Pharyngeal Erythema, Yes Moist Mucous Membranes, Yes Rhinorrhea, No Pharyngeal Exudates, No Conjuctival Injection, No Frontal Tenderness, No Maxillary Tenderness Ear: Neither TM Bulge, Neither TM Erythema, Neither EAC Pain, Neither EAC Discharge Neck: Yes Supple, No Adenopathy Lungs: Yes Good Air Exchange, Yes Cough, No Wheezes, No Ronchi, No Stridor, No Labored Respirations, No Retractions, No Use of Accessory Muscles, No Other Abnormal Lung Sounds Heart: Yes Regular, No Murmur Abdomen: Yes Normal Bowel Sounds, No Tenderness, No Peritoneal Signs Skin: No Rash, No Edema Neurologic: Alert and oriented, no deficits. Musculoskeletal: Unremarkable. ED Course Vital Signs 05/01/17 13:23 Temperature 98.2 F Pulse Rate 91 H Respiratory 20 Rate Blood Pressure 108/78 O2 Sat by Pulse 98 Oximetry ED Medical Decision Making - Lab Data Result diagrams: 05/01/17 15:12 05/01/17 15:10 - Radiology Data Radiology results: report reviewed IMPRESSION: 1. No evidence for vascular injury, pneumothorax, or bony fracture. 2. Numerous enlarged lymph nodes in the bilateral axillary and mediastinal regions. The spleen is not completely imaged but appears prominent in size. Etiologies such as lymphoma are not excluded. 3. Views concentric wall thickening of the esophagus, most typically related to esophagitis. However, neoplasm is not excluded. 4. Small low-density pericardial effusion 5. Linear atelectasis or scarring in the upper lobes bilaterally. - Medical Decision Making 57 y.o. female that presents with URI symptoms. Patient examined by me and stable. No distress noted. History of collapsed lungs in 2016. Vitals stable. Obtained BMP, CBC, and CT of chest. CT findings of small pericardial effusion. Physical assessment findings susceptible of URI. Discharged home. Given prednisone 60 mg po once in ER. Start prednisone clifford, benzonatate. Encouraged to do supportive care for URI. Follow up with PCP in 24-72 hours. Critical care attestation.: If time is entered above; I have spent that time in minutes in the direct care of this critically ill patient, excluding procedure time. ED Disposition Clinical Impression: Pericardial effusion without cardiac tamponade Upper respiratory infection Qualifiers: URI type: acute nasopharyngitis (common cold) Qualified Code(s): J00 - Acute nasopharyngitis [common cold] Disposition: TO HOME OR SELFCARE Is pt being admited?: No Does the pt Need Aspirin: No Condition: Stable Instructions: Pericardial Effusion (ED), Upper Respiratory Infection (ED) Additional Instructions: Increase fluid intake and rest. Wash hands frequently. Continue taking tylenol or ibuprofen to control fever. F/U with Primary Care Provider. Return to ER if fever, SOB, or difficulty breathing after 48 hours of supportive care. Prescriptions: Benzonatate 200 mg PO TID PRN #30 capsule PRN Reason: Cough Prednisone [predniSONE 10 mg (6-Day Pack, 21 Tabs)] 10 mg PO .TAPER #1 tab.ds.pk Referrals: [facility] [Outside] - 3-5 Days [facility] [Outside] - 3-[address] [facility] [Outside] - 3-5 Days Time of Disposition: 19:02 Print Language: ITALIAN
[2017-05-01 15:40] LABS: Hematocrit 30.2 % (30.3-42.9); Hemoglobin 9.9 gm/dl (10.1-14.3); Mean Corpuscular HGB Conc 33 % (30-34); Mean Corpuscular Hemoglobin 27 pg (28-32); Mean Corpuscular Volume 82 fl (79-97); Platelet Count 189 K/mm3 (140-440); Red Blood Count 3.67 M/mm3 (3.65-5.03); Red Cell Distribution Width 14.8 % (13.2-15.2)
--- NOTE | 2017-05-01 17:40 | Cat Scan Report ---
FINAL REPORT EXAM: CT CHEST W CON HISTORY: cough, history of collapsed lung TECHNIQUE: Standard enhanced CT of the chest at 1.25 millimeter axial increments. Coronal and sagittal reconstructions were obtained. Contrast: Intravenous contrast given PRIORS: None. FINDINGS: Linear atelectasis or scarring in the anterior upper lobes bilaterally is present. Otherwise, the lung parenchyma are expanded and clear with no evidence for parenchymal infiltrates, congestion, or pleural effusion. No pneumothorax is noted. No parenchymal lung contusion is seen. Mediastinum demonstrates no evidence for mediastinal hematoma or mediastinal air. Heart, aorta, and other vascular structures appear intact with no evidence for extravasation of contrast. There is a small low-density pericardial effusion identified. There are numerous borderline and enlarged bilateral axillary and mediastinal lymph nodes. There is a borderline lymph node in the pre cardiac fat above the right hemidiaphragm. The largest oval these lymph nodes is in the subcarinal region measuring 1.2 x 2.6 cm. Esophagus demonstrates diffuse concentric wall thickening. Findings are likely due to esophagitis although neoplasm is not excluded. The bony structures appear intact with no evidence for fracture. There are large bridging osteophytes anteriorly throughout the lower half of the thoracic spine. No soft tissue abnormality is seen. Imaging through the lung bases includes the upper abdomen shows the spleen to be prominent in size, although not completely imaged. The upper abdominal aorta appears normal. IMPRESSION: 1. No evidence for vascular injury, pneumothorax, or bony fracture. 2. Numerous enlarged lymph nodes in the bilateral axillary and mediastinal regions. The spleen is not completely imaged but appears prominent in size. Etiologies such as lymphoma are not excluded. 3. Views concentric wall thickening of the esophagus, most typically related to esophagitis. However, neoplasm is not excluded. 4. Small low-density pericardial effusion 5. Linear atelectasis or scarring in the upper lobes bilaterally.
[2017-05-01] MEDS ORDERED: DELTASONE PO ONE (18:57)
[2017-05-01 19:38] VITALS: BP 111/63
== END 2017-05-01 19:10 | disposition home or self-care (01) ==
LOC: ED 12:50
DX: I31.3 Pericardial effusion (noninflammatory) (principal); J00 Acute nasopharyngitis [common cold]; F20.9 Schizophrenia, unspecified; F44.9 Dissociative and conversion disorder, unspecified; F17.200 Nicotine dependence, unspecified, uncomplicated; Z88.0 Allergy status to penicillin
CPT/HCPCS: 36415; 71260; 80048; 85027; 99284; J7512; Q9967